=== PATIENT | male | born 1965 | race Caucasian/White ===

== ENCOUNTER 2017-08-31 10:22 | Observation (INO) | payer SELFPAY ==
[~2017-08-31] VITALS: Ht 162.6 cm; Wt 64.8 kg
[~2017-08-31 10:22] MED LIST: HYDR-3516 PO; LORT5TAB PO; WALKER/ADULT/FO1 MIS; Z.0.NO CURRENT MEDS
[2017-08-31 10:23] VITALS: BP 142/80; PULSE 80; RESP 18; TEMP 98.7; O2SAT 99
[2017-08-31] MEDS ORDERED: ASPIRIN 81 MG CHEW TAB PO ONE (14:15)
[2017-08-31] MEDS ORDERED: NITROGLYCERIN 2% OINT 1 GM PACKET TOP ONE (14:15)
[2017-08-31] MEDS ORDERED: ONDANSETRON HCL 4 MG/2 ML VIAL IV PUSH ONE (14:15)
[2017-08-31] MEDS ORDERED: MORPHINE SULFATE 4 MG/ML INJ IV PUSH ONE (14:15)
[2017-08-31] MEDS ORDERED: SODIUM CHLORIDE 0.9% FLUSH 10 ML FLUSH IVF PRN (14:15)
[2017-08-31] MEDS ORDERED: SODIUM CHLORID 0.9% 500 ML INJ 500 ML IV ONE (14:15)
--- NOTE | 2017-08-31 14:20 | PD ---
HPI Chief Complaint: Chest Pain Time Seen by Provider: 14:07 Travel History International Travel<30 days: No Contact w/Intl Traveler<30days: No Traveled to known affect area: No History of Present Illness HPI The patient is a 52-year-old male who presents to the emergency department for chest pain. The patient has a one-week history of intermittent substernal chest pain. The patient developed chest pain last night that was substernal wall playing pool. The chest pain was described as "somebody sitting on my chest ", radiated to the left arm, associated with lightheadedness , shortness of breath, nausea, and diaphoresis. The patient states he felt like he was going to "pass out ", and his friend stated he looked "ghost white ". The patient does have a history of tobacco use, has a strong family history of heart disease. The patient's father of heart disease at 54 from a massive IL and his brother had a heart attack at age of 54. His older sister had a stent placed when she was in her early 50s. The patient was diagnosed with hyperlipidemia at the age of 23, however, was unable to afford the medications. He does smoke. He denies any known history of hypertension or diabetes. The patient does not have a primary physician. The symptoms of an ongoing for 1 week, progressing, and alleviated at rest. 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 PFSH Past Medical History Narrative Medical Hyperlipidemia Kidney Stones: Yes (2005) Past Surgical History Narrative Surgical Right lower extremity surgery Family History Narrative Family History Strong family history for heart disease with a father who of an IL at 54, brother had an IL at 54, and a sister had a stent placed at 51 Social History Alcohol Use: Yes (3 BEERS 3X PER WEEK, LAST USED 45 MINUTES AGO) Tobacco Use: Yes (1PPD) Substance Use: No Allergies-Medications (Allergen,Severity, Reaction): Coded Allergies: No Known Allergies (Verified Adverse Reaction, Unknown, 08/31/17) Reported Meds & Prescriptions Reported Meds & Active Scripts Active Hydrocodone-Acetaminophen 5-325 mg Tab 1 Tab PO Q6-8 PRN Walker/Adult/Folding (Device) 1 Mis Mis 1 Ea .ROUTE DIRECTED Lortab 5/500 (Acetaminophen/Hydrocodone Bitart) 5 Mg/500 Mg Tab 1 Tab PO Q6HPRN FOR PAIN Reported No Current Meds (Miscellaneous Medication) Misc Review of Systems Except as stated in HPI: all other systems reviewed are Neg General / Constitutional: No: Chills HENT: Positive: Lightheadedness, No: Headaches Cardiovascular: Positive: Chest Pain or Discomfort, Diaphoresis Respiratory: Positive: Shortness of Breath Gastrointestinal: Positive: Nausea, No: Vomiting Musculoskeletal: No: Weakness, Edema Neurologic: Positive: Dizziness Physical Exam Narrative GENERAL: Awake, alert, pleasant 52-year-old male who appears his stated age and is in no acute respiratory distress. SKIN: Focused skin assessment warm/dry. HEAD: Atraumatic. Normocephalic. EYES: Pupils equal and round. No scleral icterus. No injection or drainage. ENT: No nasal bleeding or discharge. Poor dentition. NECK: Trachea midline. No JVD. CARDIOVASCULAR: Regular rate and rhythm. No murmur appreciated. RESPIRATORY: No accessory muscle use. Clear to auscultation. Breath sounds equal bilaterally. GASTROINTESTINAL: Abdomen soft, non-tender, nondistended. No rebound tenderness. MUSCULOSKELETAL: No obvious deformities. No clubbing. No cyanosis. No edema. NEUROLOGICAL: Awake and alert. No obvious cranial nerve deficits. Motor grossly within normal limits. Normal speech. Nonfocal. PSYCHIATRIC: Appropriate mood and affect; insight and judgment normal. Data Data Last Documented VS Vital Signs Date Time Temp Pulse Resp B/P (MAP) Pulse Ox O2 Delivery O2 Flow Rate FiO2 08/31/17 14:35 (89) Room Air 08/31/17 14:35 99 08/31/17 14:33 65 18 08/31/17 10:23 98.7 Orders Orders Electrocardiogram (08/31/17 ) Electrocardiogram (08/31/17 14:12) Ckmb (Isoenzyme) Profile (08/31/17 14:12) Complete Blood Count With Diff (08/31/17 14:12) Comprehensive Metabolic Panel (08/31/17 14:12) Magnesium (Mg) (08/31/17 14:12) Prothrombin Time / Inr (Pt) (08/31/17 14:12) Act Partial Throm Time (Ptt) (08/31/17 14:12) Troponin I (08/31/17 14:12) Lipase (08/31/17 14:12) Chest, Single Ap (08/31/17 14:12) Ecg Monitoring (08/31/17 14:12) Bilateral Bp Monitoring (08/31/17 14:12) Iv Access Insert/Monitor (08/31/17 14:12) Oximetry (08/31/17 14:12) Oxygen Administration (08/31/17 14:12) Aspirin Chew (Aspirin Chew) (08/31/17 14:15) Morphine Inj (Morphine Inj) (08/31/17 14:15) Nitroglycerin 2% Oint (Nitroglycerin 2% (08/31/17 14:15) Sodium Chloride 0.9% Flush (Ns Flush) (08/31/17 14:15) Sodium Chlorid 0.9% 500 Ml Inj (Ns 500 M (08/31/17 14:15) Ondansetron Inj (Zofran Inj) (08/31/17 14:15) Labs Laboratory Tests Test 08/31/17 14:28 White Blood Count 11.5 TH/MM3 Red Blood Count 5.21 MIL/MM3 Hemoglobin 16.1 GM/DL Hematocrit 47.0 % Mean Corpuscular Volume 90.2 FL Mean Corpuscular Hemoglobin 30.9 PG Mean Corpuscular Hemoglobin Concent 34.3 % Red Cell Distribution Width 14.3 % Platelet Count 274 TH/MM3 Mean Platelet Volume 8.7 FL Neutrophils (%) (Auto) 73.5 % Lymphocytes (%) (Auto) 19.0 % Monocytes (%) (Auto) 6.3 % Eosinophils (%) (Auto) 0.7 % Basophils (%) (Auto) 0.5 % Neutrophils # (Auto) 8.5 TH/MM3 Lymphocytes # (Auto) 2.2 TH/MM3 Monocytes # (Auto) 0.7 TH/MM3 Eosinophils # (Auto) 0.1 TH/MM3 Basophils # (Auto) 0.1 TH/MM3 CBC Comment DIFF FINAL Differential Comment Prothrombin Time 11.5 SEC Prothromb Time International Ratio 1.1 RATIO Activated Partial Thromboplast Time 25.9 SEC Blood Urea Nitrogen 9 MG/DL Creatinine 0.85 MG/DL Random Glucose 120 MG/DL Total Protein 7.0 GM/DL Albumin 3.5 GM/DL Calcium Level 8.8 MG/DL Magnesium Level 1.8 MG/DL Alkaline Phosphatase 70 U/L Aspartate Amino Transf (AST/SGOT) 19 U/L Alanine Aminotransferase (ALT/SGPT) 21 U/L Total Bilirubin 0.4 MG/DL Sodium Level 137 MEQ/L Potassium Level 4.1 MEQ/L Chloride Level 102 MEQ/L Carbon Dioxide Level 26.8 MEQ/L Anion Gap 8 MEQ/L Estimat Glomerular Filtration Rate 95 ML/MIN Total Creatine Kinase 84 U/L Troponin I LESS THAN 0.02 NG/ML Lipase 98 U/L MDM Medical Decision Making Medical Screen Exam Complete: Yes Emergency Medical Condition: Yes Medical Record Reviewed: Yes Interpretation(s) EKG reveals sinus rhythm with a rate of 61. No ischemic changes or ectopy noted. Short LA interval of 119 ms. No delta wave noted. Last Impressions Chest X-Ray 08/31/17 1412 Signed Impressions: Service Date/Time: Thursday, August 31, 2017 14:38 - CONCLUSION: No acute disease. aYsh Hand MD Laboratory Tests Test 08/31/17 14:28 White Blood Count 11.5 TH/MM3 Red Blood Count 5.21 MIL/MM3 Hemoglobin 16.1 GM/DL Hematocrit 47.0 % Mean Corpuscular Volume 90.2 FL Mean Corpuscular Hemoglobin 30.9 PG Mean Corpuscular Hemoglobin Concent 34.3 % Red Cell Distribution Width 14.3 % Platelet Count 274 TH/MM3 Mean Platelet Volume 8.7 FL Neutrophils (%) (Auto) 73.5 % Lymphocytes (%) (Auto) 19.0 % Monocytes (%) (Auto) 6.3 % Eosinophils (%) (Auto) 0.7 % Basophils (%) (Auto) 0.5 % Neutrophils # (Auto) 8.5 TH/MM3 Lymphocytes # (Auto) 2.2 TH/MM3 Monocytes # (Auto) 0.7 TH/MM3 Eosinophils # (Auto) 0.1 TH/MM3 Basophils # (Auto) 0.1 TH/MM3 CBC Comment DIFF FINAL Differential Comment Prothrombin Time 11.5 SEC Prothromb Time International Ratio 1.1 RATIO Activated Partial Thromboplast Time 25.9 SEC Blood Urea Nitrogen 9 MG/DL Creatinine 0.85 MG/DL Random Glucose 120 MG/DL Total Protein 7.0 GM/DL Albumin 3.5 GM/DL Calcium Level 8.8 MG/DL Magnesium Level 1.8 MG/DL Alkaline Phosphatase 70 U/L Aspartate Amino Transf (AST/SGOT) 19 U/L Alanine Aminotransferase (ALT/SGPT) 21 U/L Total Bilirubin 0.4 MG/DL Sodium Level 137 MEQ/L Potassium Level 4.1 MEQ/L Chloride Level 102 MEQ/L Carbon Dioxide Level 26.8 MEQ/L Anion Gap 8 MEQ/L Estimat Glomerular Filtration Rate 95 ML/MIN Total Creatine Kinase 84 U/L Troponin I LESS THAN 0.02 NG/ML Lipase 98 U/L Differential Diagnosis Differential diagnosis includes acute coronary syndrome, STEMI, cardiomyopathy, deconditioning, pulmonary embolism, esophageal spasm, GERD. Narrative Course IV was established, labs are drawn and sent, and the patient was placed on cardiac telemetry monitoring and continuous pulse oximetry monitoring. EKG was ordered and interpreted. Chest x-ray was obtained. The patient was administered aspirin, morphine, nitroglycerin paste, Zofran, and IV fluids. The patient's chest x-rays unremarkable. Initial troponin was less than 0.02. The patient has multiple risk factors with substernal chest pressure that radiates to left arm, shortness of breath, and nausea with diaphoresis. The patient will need serial cardiac enzymes and further evaluation by cardiology for possible stress test. Physician Communication Physician Communication The patient will be 23 hour observation to the chest pain center for serial cardiac enzymes and further evaluation by cardiology for possible stress test. Diagnosis Primary Impression: Chest pain Qualified Codes: R07.9 - Chest pain, unspecified Admitting Information Admitting Physician Requests: Observation Condition: Stable Jeff Javier MD Aug 31, 2017 14:19
[2017-08-31 14:33] VITALS: BP_SYST 111; BP_SYST 139; BP_DIAS 65; BP_DIAS 76; PULSE 65; RESP 18; O2SAT 98
[2017-08-31 14:51] LABS: AUTOMATED NEUTROPHIL # 8.5 TH/MM3 (1.8-7.7); BASOPHIL # 0.1 TH/MM3 (0-0.2); BASOPHIL % 0.5 % (0.0-2.0); EOSINOPHIL # 0.1 TH/MM3 (0-0.4); EOSINOPHIL % 0.7 % (0.0-4.0); HEMOGLOBIN 16.1 GM/DL (13.0-17.0); LYMPHOCYTE # 2.2 TH/MM3 (1.0-4.8); MEAN CELL VOLUME 90.2 FL (80.0-100.0); MEAN CORPUSCULAR HEMOGLOBIN 30.9 PG (27.0-34.0); MEAN CORPUSCULAR HGB CONC 34.3 % (32.0-36.0); MEAN PLATELET VOLUME 8.7 FL (7.0-11.0); MONO % 6.3 % (0.0-8.0); MONOCYTE # 0.7 TH/MM3 (0-0.9); NEUT % 73.5 % (16.0-70.0); PLATELET COUNT 274 TH/MM3 (150-450); RED BLOOD COUNT 5.21 MIL/MM3 (4.50-5.90); RED CELL DISTRIBUTION WIDTH 14.3 % (11.6-17.2); WHITE BLOOD COUNT 11.5 TH/MM3 (4.0-11.0)
[2017-08-31 15:13] LABS: ALBUMIN 3.5 GM/DL (3.4-5.0); ALT (GPT) 21 U/L (12-78); AST (GOT) 19 U/L (15-37); BICARBONATE 26.8 MEQ/L (21.0-32.0); BLOOD UREA NITROGEN 9 MG/DL (7-18); CALCIUM 8.8 MG/DL (8.5-10.1); CHLORIDE 102 MEQ/L (98-107); CREATININE 0.85 MG/DL (0.60-1.30); GLOMERULAR FILTRATION RATE 95 ML/MIN (>89); GLUCOSE,RANDOM 120 MG/DL (74-106); LIPASE 98 U/L (73-393); MAGNESIUM 1.8 MG/DL (1.5-2.5); SODIUM (NA) 137 MEQ/L (136-145)
[2017-08-31 15:17] LABS: ALKALINE PHOSPHATASE 70 U/L (45-117); TOTAL BILIRUBIN ADULT 0.4 MG/DL (0.2-1.0); TROPONIN I LESS THAN 0.02 NG/ML (0.02-0.05)
--- NOTE | 2017-08-31 15:21 | RADRPT ---
EXAM DATE/TIME: 08/31/2017 14:38 [facility] COMPARISON: No previous studies available for comparison. INDICATIONS : Chest pain. MEDICAL HISTORY : None. SURGICAL HISTORY : None. ENCOUNTER: Initial ACUITY: 2 weeks PAIN SCORE: 4/10 LOCATION: Bilateral chest FINDINGS: A single view of the chest demonstrates the lungs to be symmetrically aerated without evidence of mas s, infiltrate or effusion. The cardiomediastinal contours are unremarkable. Osseous structures are intact. CONCLUSION: No acute disease. Yash Hand MD on August 31, 2017 at 15:18 Board Certified Radiologist. This report was verified electronically.
[2017-08-31 15:49] LABS: INTERNATIONAL NORMALIZED RATIO 1.1 RATIO; PROTHROMBIN TIME - PATIENT 11.5 SEC (9.8-11.6)
[2017-08-31 16:45] VITALS: BP 111/68; PULSE 48; RESP 16
[2017-08-31 18:30] VITALS: BP 108/59; PULSE 54; RESP 20; TEMP 96.9; O2SAT 98
[2017-08-31 20:00] VITALS: BP 108/69; PULSE 57; RESP 17; TEMP 98; O2SAT 97
--- NOTE | 2017-08-31 20:51 | EKG ---
Date Performed: 08/31/2017 Time Performed: 10:37:26 PTAGE: 52 years EKG: Sinus rhythm WITH SHORT LA INTERVAL BORDERLINE RIGHT AXIS DEVIATION BORDERLINE ECG PREVIOUS TRACING : 07/05/2016 07.14 Compared to prior tracing no significant change DOCTOR: Rock Paez Interpretating Date/Time 08/31/2017 20:49:31
[2017-09-01] VITALS (7 sets, daily range): BP systolic 100–117; BP diastolic 57–70; PULSE 49–71; RESP 18–20; TEMP 96.9–97.9; O2SAT 94–99
[2017-09-01] MEDS ORDERED: ACETAMINOPHEN 500 MG CPLT PO PRN (13:45)
[2017-09-01] MEDS ORDERED: SODIUM CHLORIDE 0.9% FLUSH 10 ML FLUSH IV FLUSH PRN (13:45)
[2017-09-01] MEDS ORDERED: ONDANSETRON HCL 4 MG/2 ML VIAL IV PUSH PRN (13:45)
[2017-09-01 14:29] LABS: TROPONIN I LESS THAN 0.02 NG/ML (0.02-0.05)
--- NOTE | 2017-09-01 15:18 | HHI.HP ---
[facility] Service [facility] Primary Care Physician No Primary Care Physician Admission Diagnosis Chest pain rule out ACS Diagnoses: Chief Complaint: Chest pain Travel History International Travel<30 Days: No Contact w/Intl Traveler <30 Da: No Traveled to Known Affected Are: No History of Present Illness Written by Alayna Esquivel, acting as scribe for Dr. Berry on 09/01/17 at 15:12. This is a pleasant 52-year-old male patient with a known medical history of hyperlipidemia presenting the ED with clean the chest pain. Patient states that the chest pain started roughly one week ago intermittently coming and going , occurring in the midsternal chest with radiation to the left side and left arm. Patient states that the pain is aching in nature, rated a five out of ten on pain scale, admits to associated nausea no vomiting, does admit to diaphoresis and shortness of breath with pain. Patient states that on Tuesday night the pain had gotten worse. He states that at that point it started to feel like it was now less than on his chest. At that time the pain lasted roughly an hour and went away on its own. Patient does state that activity made it worse and does not admit to any alleviating factors. Patient does admit to recent productive cough with yellow sputum. He also admits that he has lost roughly 15 pounds in the last two weeks, states that every time he eats he feels nauseous and unable to tolerate by mouth intake. Denies any recent fever, chills, shortness of breath, abdominal pain, vomiting, diarrhea or dysuria. Patient does not have a PCP. He does admit to a significant family medical history of cardiovascular disease. Also admits to smoking three packs per day. Denies ever having a previous stress test or followed by glass cutter hand. Denies ever having this type of chest pain in the past. Review of Systems Constitutional: DENIES: Fever, Chills Respiratory: COMPLAINS OF: Cough, Shortness of breath Cardiovascular: COMPLAINS OF: Chest pain Gastrointestinal: COMPLAINS OF: Nausea, DENIES: Abdominal pain, Black stools, Constipation, Diarrhea, Vomiting Musculoskeletal: DENIES: Joint pain Hematologic/lymphatic: DENIES: Bruising Psychiatric: COMPLAINS OF: Anxiety Except as stated in HPI: all other systems reviewed are Neg Past Family Social History Past Medical History Hyperlipidemia, diet controlled. Past Surgical History Right lower extremity surgery. Reported Medications Active Hydrocodone-Acetaminophen 5-325 mg Tab 1 Tab PO Q6-8 PRN Allergies: Coded Allergies: No Known Allergies (Verified Allergy, Unknown, 09/01/17) Active Ordered Medications Current Medications Medications (Trade) Dose Ordered Sig/Roger Route Start Time Stop Time Status Last Admin (NS Flush) 2 ml UNSCH PRN IV FLUSH 09/01/17 13:45 (NS Flush) 2 ml BID IV FLUSH 09/01/17 21:00 (Tylenol) 500 mg Q4H PRN PO 09/01/17 13:45 (Zofran Inj) 4 mg Q6H PRN IV PUSH 09/01/17 13:45 Family History Patient does admit to significant family medical history of cardiovascular disease. Father at the age of fifty-four from a massive heart attack. Brother also had a heart attack at the age of fifty-four. Patient's older sister had a stent placed in her early 50s. Social History Admits to smoking three packs per day since the age of [age] years old. Admits to drinking a few times a week, up to six beers in one sitting. Does admit to occasional marijuana use. Denies any other illicit drug use. Physical Exam Vital Signs Vital Signs Date Time Temp Pulse Resp B/P (MAP) Pulse Ox O2 Delivery O2 Flow Rate FiO2 09/01/17 11:50 97.9 58 20 100/58 (72) 96 09/01/17 07:50 97.2 71 20 112/60 (77) 98 09/01/17 00:30 97.9 62 18 110/70 (83) 99 08/31/17 20:00 98.0 57 17 108/69 (82) 97 08/31/17 18:30 96.9 54 20 108/59 (75) 98 08/31/17 16:45 48 16 111/68 (82) 08/31/17 16:45 Room Air 08/31/17 16:41 (89) Physical Exam GENERAL: This is a well-nourished, well-developed patient, laying in bed in no apparent distress. SKIN: No rashes, ecchymoses or lesions. Warm and dry. HEAD: Atraumatic. Normocephalic. EYES: Pupils equal round and reactive. Extraocular motions intact. No scleral icterus. No injection or drainage. ENT: Nose without bleeding, purulent drainage or septal hematoma. Throat without erythema, tonsillar hypertrophy or exudate. Uvula midline. Airway patent. NECK: Trachea midline. No JVD. Supple. CARDIOVASCULAR: Regular rate and rhythm without murmurs, gallops, or rubs. No reproducible chest pain RESPIRATORY: Clear to auscultation. Breath sounds equal bilaterally. No wheezes , rales, or rhonchi. GASTROINTESTINAL: Abdomen soft, non-tender, nondistended. no guarding. MUSCULOSKELETAL: Extremities without clubbing, cyanosis, or edema. No joint tenderness, effusion, or edema noted. NEUROLOGICAL: Awake and alert. Cranial nerves II through XII intact. Motor and sensory grossly within normal limits. Five out of 5 muscle strength in all muscle groups. Normal speech. Laboratory Laboratory Tests Test 08/31/17 20:36 09/01/17 13:46 Troponin I LESS THAN 0.02 LESS THAN 0.02 Total Creatine Kinase 46 Result Diagram: 08/31/17 1428 08/31/17 1428 Imaging Last Impressions Chest X-Ray 08/31/17 1412 Signed Impressions: Service Date/Time: Thursday, August 31, 2017 14:38 - CONCLUSION: No acute disease. Yash Hand MD Septic Shock Reassessment Septic shock perfusion: reassessment completed Caprini VTE Risk Assessment Caprini VTE Risk Assessment: No/Low Risk (score <= 1) Caprini Risk Assessment Model Point Value = 1 Point Value = 2 Point Value = 3 Point Value = 5 Age 41-60 Minor surgery BMI > 25 kg/m2 Swollen legs Varicose veins or History of unexplained or recurrent spontaneous Oral contraceptives or hormone replacement Sepsis (< 1 month) Serious lung disease, including pneumonia (< 1 month) Abnormal pulmonary function Acute myocardial infarction Congestive heart failure (< 1 month) History of inflammatory bowel disease Medical patient at bed rest Age 61-74 Arthroscopic surgery Major open surgery (> 45 min) Laparoscopic surgery (> 45 min) Malignancy Confined to bed (> 72 hours) Immobilizing plaster cast Central venous access Age >= 75 History of VTE Family history of VTE Factor V Leiden Prothrombin [id number] Lupus anticoagulant Anticardiolipin antibodies Elevated serum homocysteine Heparin-induced thrombocytopenia Other congenital or acquired thrombophilia Stroke (< 1 month) Elective arthroplasty Hip, pelvis, or leg fracture Acute spinal cord injury (< 1 month) Prophylaxis Regimen Total Risk Factor Score Risk Level Prophylaxis Regimen 0-1 Low Early ambulation 2 Moderate Order ONE of the following: *Sequential Compression Device (SCD) *Heparin 5000 units SQ BID 3-4 Higher Order ONE of the following medications: *Heparin 5000 units SQ TID *Enoxaparin/Lovenox 40 mg SQ daily (WT < 150 kg, CrCl > 30 mL/min) *Enoxaparin/Lovenox 30 mg SQ daily (WT < 150 kg, CrCl > 10-29 mL/min) *Enoxaparin/Lovenox 30 mg SQ BID (WT < 150 kg, CrCl > 30 mL/min) AND/OR *Sequential Compression Device (SCD) 5 or more Highest Order ONE of the following medications: *Heparin 5000 units SQ TID (Preferred with Epidurals) *Enoxaparin/Lovenox 40 mg SQ daily (WT < 150 kg, CrCl > 30 mL/min) *Enoxaparin/Lovenox 30 mg SQ daily (WT < 150 kg, CrCl > 10-29 mL/min) *Enoxaparin/Lovenox 30 mg SQ BID (WT < 150 kg, CrCl > 30 mL/min) AND *Sequential Compression Device (SCD) Assessment and Plan Problem List: (1) Chest pain ICD Code: R07.9 - Chest pain, unspecified Status: Acute Plan: Patient has been admitted to the chest pain center and under observation. Serial EKGs and serial troponins have been ordered for ruling out ACS purposes. Serial troponins are flat. EKG reviewed showing sinus bradycardia. No ST segment to indicate any ischemia. Chest pain is still present, is more mild in nature, and pressure-like. Chest x-ray reviewed, no acute cardiopulmonary disease. CBC and BMP reviewed, essentially unremarkable. Continue cardiac telemetry, monitor for any arrhythmias. Will add lipid panel to labs. Follow. Patient will undergo a cardiac Lexiscan to rule out any further ischemia, patient does have a significant family medical history of cardiovascular disease as well as a significant amount of daily tobacco use. Stable at this time and agreeable to plan. Assessment and Plan This note was transcribed by CHUN Knott . I, Dr. Stephanie Berry personally performed the history, physical exam, and medical decision making; and confirmed the accuracy of the information in the transcribed note. Authenticated by Dr. Stephanie Berry on 09/01/17 at 15:12. Patient underwent a cardiac nuclear stress test which was reviewed showing no signs of ischemia. EF 70%. There is intact twelve motion thickening without hypokinetic to dyskinetic segments. updated about stress test results. Symptoms may possibly be due to GI in nature. Encouraged to follow-up with PCP in the outpatient setting with possible referral to GI specialist. Given omeprazole prescription. Cardiac telemetry reviewed with no acute events or arrhythmias noted. Patient stable at this time and agreeable to the plan. Problem Qualifiers (1) Chest pain: Qualified Codes: R07.9 - Chest pain, unspecified Alayna Esquivel Sep 01, 2017 15:18 Stephanie Berry MD Sep 01, 2017 15:40
[2017-09-01] MEDS ORDERED: REGADENOSON INJ 0.4 MG/5 ML SYR IV ONE (16:04)
[2017-09-01 17:28] LABS: TROPONIN I LESS THAN 0.02 NG/ML (0.02-0.05)
--- NOTE | 2017-09-01 17:50 | RADRPT ---
EXAM DATE/TIME: 09/01/2017 15:30 [facility] COMPARISON: No previous studies available for comparison. INDICATIONS : Substernal chest pain radiating to the left arm with lightheadedness, dyspnea, nausea and diaphoresis . Angina. DOSE: 27.1 mCi Tc99m Myoview at stress. 8.8 mCi Tc99m Myoview at rest. 0.4 mg Lexiscan STRESS SYMPTOMS: Abdominal pain, nausea and dyspnea. EJECTION FRACTION: 70% MEDICAL HISTORY : Hypercholesterolemia. SURGICAL HISTORY : None. ENCOUNTER: Initial ACUITY: 1 week PAIN SCALE: 9/10 LOCATION: Substernal chest TECHNIQUE: The patient underwent pharmacologic stress with infusion of prescribed dose. Continuous ECG tracing was monitored during stress. Gated SPECT imaging was performed after stress and conventional SPECT i maging was performed at rest. The examination was performed on a SPECT/CT scanner, both attenuation and non-corrected datasets were reviewed. FINDINGS: DISTRIBUTION: The maximum perfused segment at stress is in the anterolateral wall. PERFUSION STUDY: The pattern of perfusion at stress is within normal limits. GATED STUDY: There is intact wall motion and thickening without hypokinetic or dyskinetic segments. CONCLUSION: 1. No evidence for stress-induced ischemia. 2. Normal wall motion with EF of 70%. RISK CATEGORY: Low (<1% Annual Mortality Rate) Murali Hi MD on September 01, 2017 at 17:47 Board Certified Radiologist. This report was verified electronically.
--- NOTE | 2017-09-01 17:54 | HHI.DCPOC ---
Discharge Care Plan Diagnosis: (1) Chest pain Goals to Promote Your Health * To prevent worsening of your condition and complications * To maintain your health at the optimal level Directions to Meet Your Goals Take your medications as prescribed Follow your dietary instruction Follow activity as directed Keep your appointments as scheduled Take your immunizations and boosters as scheduled If your symptoms worsen call your PCP, if no PCP go to Urgent Care Center or Emergency Room Smoking is Dangerous to Your Health. Avoid second hand smoke Call the 24-hour hour crisis hotline for domestic abuse at Alayna Esquivel Sep 01, 2017 17:54
[2017-09-01] MEDS ORDERED: OMEP20TA93 PO (17:55)
[2017-09-01] MEDS ORDERED: SODIUM CHLORIDE 0.9% FLUSH 10 ML FLUSH IV FLUSH SCH (21:00)
--- NOTE | 2017-09-02 15:49 | EKG ---
Date Performed: 09/01/2017 Time Performed: 16:45:46 PTAGE: 52 years EKG: Sinus rhythm BORDERLINE RIGHT AXIS DEVIATION BORDERLINE ECG PREVIOUS TRACING : 09/01/2017 13.58 Since previous tracing, no significant change noted DOCTOR: Trae York Interpretating Date/Time 09/02/2017 15:48:00
--- NOTE | 2017-09-02 15:50 | EKG ---
Date Performed: 09/01/2017 Time Performed: 13:58:04 PTAGE: 52 years EKG: SINUS BRADYCARDIA BORDERLINE ECG PREVIOUS TRACING : 08/31/2017 17.57 Since previous tracing, no significant change noted DOCTOR: Trae York Interpretating Date/Time 09/02/2017 15:49:13
--- NOTE | 2017-09-02 15:55 | EKG ---
Date Performed: 08/31/2017 Time Performed: 17:57:06 PTAGE: 52 years EKG: SINUS BRADYCARDIA WITH SHORT AR INTERVAL BORDERLINE ECG PREVIOUS TRACING : 08/31/2017 10.37 Since previous tracing, no significant change noted DOCTOR: Trae York Interpretating Date/Time 09/02/2017 15:54:13
--- NOTE | 2017-09-02 16:04 | TR ---
Date Performed: 09/01/2017 Time Performed: 15:55:18 DOCTOR: Trae York DRUG LIST: CLINICAL HISTORY: REASON FOR TEST: Chest pain REASON FOR ENDING: OBSERVATION: CONCLUSION: Lexiscan stress test was performed under standard four minute protocol. Radionuclid e was injected one minute prior to ending the test. No electrocardiographic abormalities were present to suggest ischemia. Nuclear imaging and interpretation are pending. COMMENTS:
== END 2017-09-01 18:44 | disposition home or self-care (01) ==
LOC: NEPC 10:22 → NEDA 16:03 → PH3A 18:26
PROVIDERS: ADMIT Hospitalist; ATTEND Hospitalist
DX: R07.9 Chest pain, unspecified (principal); R00.1 Bradycardia, unspecified; R10.9 Unspecified abdominal pain; R06.02 Shortness of breath; R11.0 Nausea; R05 Cough; M79.602 Pain in left arm; R07.2 Precordial pain; R42 Dizziness and giddiness; R06.00 Dyspnea, unspecified; R61 Generalized hyperhidrosis; I20.9 Angina pectoris, unspecified; E78.00 Pure hypercholesterolemia, unspecified; F41.9 Anxiety disorder, unspecified; F12.90 Cannabis use, unspecified, uncomplicated; F17.200 Nicotine dependence, unspecified, uncomplicated
CPT/HCPCS: 71045; 78452; 80053; 82550; 83690; 83735; 84484; 85025; 85610; 85730; 93005; 93017; 96361; 96374; 96375; 99285; A9502; G0378; J2270; J2405; J2785; J7040